=== PATIENT | male | born 1980 | race Caucasian/White ===

== ENCOUNTER 2018-04-27 08:04 | Emergency (ER) | payer BC, MEDICAID ==
[~2018-04-27] VITALS: Ht 190.5 cm; Wt 98.1 kg
[2018-04-27 08:06] VITALS: BP 125/80
--- NOTE | 2018-04-27 08:10 | NUR ---
Pt reports 5 days of cough, gen malaise, body aches, reported elev. temp. Vomited several times last night. Pt WPD, A&O x4, steady gait, eupneic. Await ER MD dennis.
[2018-04-27] MEDS ORDERED: DEXAMETHASONE 4 MG/ML, 1ML PO ONE (08:30)
[2018-04-27] MEDS ORDERED: ONDANSETRON ODT 4 MG PO ONE (08:30)
[2018-04-27] MEDS ORDERED: DEXAMETHASONE 4 MG/ML, 5ML ONE (08:39)
[2018-04-27] MEDS ORDERED: ONDANSETRON ODT 8 MG ONE (08:39)
--- NOTE | 2018-04-27 09:15 | NUR ---
tolerating po fluids
--- NOTE | 2018-04-27 09:31 | NUR ---
Patient given discharge instructions and they have confirmed that they understand the instructions. Patient ambulatory with steady gait.
== END 2018-04-27 09:32 | disposition home or self-care (01) ==
LOC: ED 08:53
DX: B34.9 Viral infection, unspecified (principal); J45.909 Unspecified asthma, uncomplicated
CPT/HCPCS: 71046; 99283; J1100; Q0162